=== PATIENT | female | born 2000 | race Caucasian/White ===

== ENCOUNTER 2022-03-02 16:16 | Day surgery (SDC) | payer OTHER ==
[2022-03-02] MEDS ORDERED: EPINEPHrine 1 MG/ML AMP ONE (16:45)
[2022-03-02] MEDS ORDERED: Piperacillin/Tazobactam 3.375 GM VIAL ONE (16:45)
[2022-03-02] MEDS ORDERED: Bupivacaine PF 0.5% 30 ML VIAL ONE (16:45)
[2022-03-02] MEDS ORDERED: SUGAMMADEX SODIUM 200 MG/2 ML VIAL ONE (17:14)
[2022-03-02] MEDS ORDERED: HYDROcodone/Acetaminophen 5/325 mg Tablet ONE (18:01)
== END 2022-03-02 18:54 | disposition home or self-care (01) ==
LOC: CSHSDC 16:16
PROVIDERS: ATTEND Surgery
PROC: 0FT44ZZ Resection of Gallbladder, Percutaneous Endoscopic Approach (ICD-10-PCS; principal; 2022-03-02)
DX: O99.612 Diseases of the digestive system complicating pregnancy, second trimester (principal); K80.12 Calculus of gallbladder with acute and chronic cholecystitis without obstruction; O99.332 Smoking (tobacco) complicating pregnancy, second trimester; F17.290 Nicotine dependence, other tobacco product, uncomplicated; Z3A.20 20 weeks gestation of pregnancy; Z79.899 Other long term (current) drug therapy; Z90.49 Acquired absence of other specified parts of digestive tract
CPT/HCPCS: 88304; C1889; J0171; J2543; S0020